=== PATIENT | male | born 1985 | race Caucasian/White ===

== ENCOUNTER → 2016-12-11 | Outpatient (CLI) | payer OTHER ==
[~2016-12-11] VITALS: Ht 175.3 cm; Wt 72.6 kg
[~2016-12-11] MED LIST: LIDOCAINE 2% INJ 100 MG/5 ML SDV (FOR ANES.) As Ordered ONE; NEXI20CA PO; NS 1,000 ML IV ONE; PROPOFOL 200 MG/20 ML VIAL As Ordered ONE
--- NOTE | 2016-12-11 13:33 | ROOR ---
Patient Name: Artur Russo Procedure Date: 12/11/2016 12:57 PM Date of : 1985 Age: 31 Room: [facility] Gender: Male Note Status: Finalized Procedure: Upper GI endoscopy Indications: Familial Adenomatous Polyposis Providers: Haim LOUIS MD Referring MD: NEETA ASTUDILLO MD Requesting Provider: Medicines: Monitored Anesthesia Care Complications: No immediate complications. Procedure: Pre-Anesthesia Assessment: - The heart rate, respiratory rate, oxygen saturations, blood pressure, adequacy of pulmonary ventilation, and response to care were monitored throughout the procedure. The Endoscope was introduced through the mouth, and advanced to the third part of duodenum. The upper GI endoscopy was accomplished without difficulty. The patient tolerated the procedure well. Findings: No endoscopic abnormality was evident in the esophagus to explain the patient's complaint of dysphagia. This was biopsied with a cold forceps for evaluation of eosinophilic esophagitis. Multiple small semi-sessile fundic gland polyps with no stigmata of recent bleeding were found in the gastric fundus and in the gastric body. This was biopsied with a cold forceps for r/o adenoma. multiple random biopsies. The exam of the stomach was otherwise normal. A few diminutive sessile polyps were found in the first portion of the duodenum. This was biopsied with a cold forceps for histology. The exam of the duodenum was otherwise normal. Impression: - No endoscopic esophageal abnormality to explain patient's dysphagia. Biopsied for eosinophilic esophagitis. - Multiple, too numerous to count, small fundic gland appearing polyps. Biopsied to r/o adenoma. - Stomach otherwise normal. - A few tiny duodenal polyps. Biopsied to r/o adenoma. - Duodenum otherwise normal. Recommendation: - Await pathology results. - Telephone endoscopist for pathology results in 2 weeks. - Repeat upper endoscopy in 1 year for surveillance. Haim Louis MD Haim LOUIS MD 12/11/2016 1:33:05 PM This report has been signed electronically. Number of Addenda: 0 Note Initiated On: 12/11/2016 12:57 PM Estimated Blood Loss: Estimated blood loss: none.
--- NOTE | 2016-12-11 13:48 | ROOR ---
Patient Name: Artur Russo Procedure Date: 12/11/2016 12:58 PM Date of : 1985 Age: 31 Room: [facility] Gender: Male Note Status: Finalized Procedure: Flexible Sigmoidoscopy Indications: Surveillance: High risk for colon cancer and History of adenomatous polyps, last colonoscopy (<3 yr), High risk colon cancer surveillance: Personal history of familial adenomatous polyposis Providers: Haim LOUIS MD Referring MD: NEETA ASTUDILLO MD Requesting Provider: Medicines: Monitored Anesthesia Care Complications: No immediate complications. Procedure: Pre-Anesthesia Assessment: - The heart rate, respiratory rate, oxygen saturations, blood pressure, adequacy of pulmonary ventilation, and response to care were monitored throughout the procedure. The Colonoscope was introduced through the anus and advanced to the ileo-sigmoid anastomosis. The flexible sigmoidoscopy was accomplished without difficulty. The patient tolerated the procedure well. The quality of the bowel preparation was good. Findings: The perianal and digital rectal examinations were normal. There was evidence of a prior end-to-end ileo-rectal anastomosis at 18 cm proximal to the anus. This was patent and was characterized by healthy appearing mucosa. The anastomosis was traversed. The rectum, ileum, anastomosis and area at 40 cm proximal to the anus appeared normal. Impression: - Patent end-to-end ileo-rectal anastomosis, characterized by healthy appearing mucosa. - The rectum, terminal ileum, colonic anastomosis and area at 40 cm proximal to the anus are normal. - No specimens collected. Recommendation: - Repeat flexible sigmoidoscopy in 1 year for surveillance. Haim Louis MD Haim LOUIS MD 12/11/2016 1:47:31 PM This report has been signed electronically. Number of Addenda: 0 Note Initiated On: 12/11/2016 12:58 PM Estimated Blood Loss: Estimated blood loss: none.
[2016-12-11 14:05] VITALS: BP 128/72
== END | disposition home or self-care (01) ==
LOC: M OPP 11:49
PROVIDERS: ATTEND Internal Medicine Gastroenterology
DX: Z12.11 Encounter for screening for malignant neoplasm of colon (principal); Z98.0 Intestinal bypass and anastomosis status; Z86.010 Personal history of colon polyps; D12.6 Benign neoplasm of colon, unspecified; R13.10 Dysphagia, unspecified; K31.7 Polyp of stomach and duodenum; K21.9 Gastro-esophageal reflux disease without esophagitis; R12 Heartburn; Z87.828 Personal history of other (healed) physical injury and trauma; Z79.899 Other long term (current) drug therapy; Z80.8 Family history of malignant neoplasm of other organs or systems; Z80.3 Family history of malignant neoplasm of breast

== ENCOUNTER → 2017-01-29 | Outpatient (CLI) | payer OTHER ==
[~2017-01-29] VITALS: Ht 175.3 cm; Wt 72.1 kg
[~2017-01-29] MED LIST changes: -LIDOCAINE 2% INJ 100 MG/5 ML SDV (FOR ANES.) As Ordered ONE; -PROPOFOL 200 MG/20 ML VIAL As Ordered ONE
--- NOTE | 2017-01-29 14:12 | ROOR ---
Patient Name: Artur Russo Procedure Date: 01/29/2017 1:43 PM Date of : 1985 Age: 31 [facility] Note Status: Finalized Procedure: Upper GI endoscopy Indications: Familial Adenomatous Polyposis, s/p colectomy, history of duodenal adenomas, possible history of periampullary adenoma. history of eosinophilic esophagitis, history of gastric fundic gland polyps. Providers: Haim LOUIS MD Referring MD: NEETA ASTUDILLO MD Requesting Provider: Medicines: Monitored Anesthesia Care Complications: No immediate complications. Procedure: Pre-Anesthesia Assessment: - The heart rate, respiratory rate, oxygen saturations, blood pressure, adequacy of pulmonary ventilation, and response to care were monitored throughout the procedure. The Endoscope was introduced through the mouth, and advanced to the third part of duodenum. The upper GI endoscopy was accomplished without difficulty. The patient tolerated the procedure well. - First the standard EGD scope was used, this was replaced with side view duodenoscope for better eval of periampullary area. Findings: The examined esophagus was normal. Multiple sessile fundic gland polyps were found in the gastric fundus and in the gastric body. The exam of the stomach was otherwise normal. Two diminutive sessile polyps were found in the second portion of the duodenum. The polyp was removed with a jumbo cold forceps. Resection and retrieval were complete. The exam of the duodenum was otherwise normal. Impression: - Normal esophagus. (biopsies from last month were negative for eosinophilic esophagitis) - Multiple fundic gland polyps.(biopsies from last month were negative for adenoma) - Two tiny duodenal polyps. Resected and retrieved. - Papilla and peripapillary area well seen on straight as well as side view scope. Appearance is normal- I do not see a definite abnormality. The papilla and peripapillary mucosa was. Recommendation: - Await pathology results. - Telephone endoscopist for pathology results in 2 weeks. - Unless directed otherwise by biopsies done today, will plan on repeat upper endoscopy (standard and side view scope) and flexible sigmoidoscopy in 1 year for surveillance. Haim Louis MD Haim LOUIS MD 01/29/2017 2:11:56 PM This report has been signed electronically. Number of Addenda: 0 Note Initiated On: 01/29/2017 1:43 PM Estimated Blood Loss: Estimated blood loss: none.
[2017-01-29 14:29] VITALS: BP 115/74
== END | disposition home or self-care (01) ==
LOC: M OPP 12:36
PROVIDERS: ATTEND Internal Medicine Gastroenterology
DX: D12.6 Benign neoplasm of colon, unspecified (principal); K31.7 Polyp of stomach and duodenum; R12 Heartburn; K21.9 Gastro-esophageal reflux disease without esophagitis; Z87.828 Personal history of other (healed) physical injury and trauma; Z79.899 Other long term (current) drug therapy; Z80.3 Family history of malignant neoplasm of breast; Z80.8 Family history of malignant neoplasm of other organs or systems

== ENCOUNTER 2017-06-11 19:17 | Day surgery (SDC) | payer OTHER ==
[~2017-06-11] VITALS: Ht 175.3 cm; Wt 79.5 kg
[~2017-06-11 19:17] MED LIST changes: -NS 1,000 ML IV ONE
[2017-06-11] MEDS ORDERED: GLUCAGON FOR INJ 1 MG VIAL (J1610) IV STA ×2 (19:54→20:36)
[2017-06-11] MEDS ORDERED: NITROGLYCERIN 0.4 MG SUBL TABLET SL STA ×2 (19:58→20:36)
[2017-06-11] MEDS ORDERED: NS 1,000 ML IV ONE (20:00)
[2017-06-11 20:49] VITALS: BP 137/84
[2017-06-11] MEDS ORDERED: MIDAZOLAM INJ 2 MG/2 ML VIAL (J2250) As Ordered ONE (22:11)
[2017-06-11] MEDS ORDERED: fentaNYL 100 MCG/2 ML INJECTION (J3010) As Ordered ONE (22:12)
[2017-06-11] MEDS ORDERED: PROPOFOL 200 MG/20 ML VIAL As Ordered ONE (22:12)
[2017-06-11] MEDS ORDERED: LIDOCAINE 2% INJ 100 MG/5 ML SDV (FOR ANES.) As Ordered ONE ×2 (22:12→22:13)
[2017-06-11] MEDS ORDERED: ROCURONIUM BROMIDE 50 MG/5 ML VIAL/SYRINGE As Ordered ONE (23:03)
[2017-06-11] MEDS ORDERED: SUCCINYLCHOLINE 100 MG/5 ML SYRINGE (J0330) As Ordered ONE ×2 (23:03→23:18)
[2017-06-12] MEDS ORDERED: SEVOFLURANE INHAL SOLN 250 ML BTL As Ordered ONE (00:52)
--- NOTE | 2017-06-12 02:05 | ROOR ---
Patient Name: Artur Russo Procedure Date: 06/11/2017 10:08 PM Date of : 1985 Age: 31 Gender: Male Note Status: Finalized Procedure: Upper GI endoscopy Indications: Removal of foreign body in the esophagus Providers: Riley Escobar MD Referring MD: 3. Emergency Dept 3. Emergency Dept Requesting Provider: Medicines: Monitored Anesthesia Care Complications: No immediate complications. Procedure: Pre-Anesthesia Assessment: - Prior to the procedure, a History and Physical was performed, and patient medications and allergies were reviewed. The patient is competent. The risks and benefits of the procedure and the sedation options and risks were discussed with the patient. All questions were answered and informed consent was obtained. Patient identification and proposed procedure were verified by the physician, the nurse and the anesthesiologist in the procedure room. Mental Status Examination: alert and oriented. Airway Examination: normal oropharyngeal airway and neck mobility. Respiratory Examination: clear to auscultation. CV Examination: normal. Prophylactic Antibiotics: The patient does not require prophylactic antibiotics. Prior Anticoagulants: The patient has taken no previous anticoagulant or antiplatelet agents. ASA Grade Assessment: II - A patient with mild systemic disease. After reviewing the risks and benefits, the patient was deemed in satisfactory condition to undergo the procedure. The anesthesia plan was to use monitored anesthesia care (MAC). Immediately prior to administration of medications, the patient was re-assessed for adequacy to receive sedatives. The heart rate, respiratory rate, oxygen saturations, blood pressure, adequacy of pulmonary ventilation, and response to care were monitored throughout the procedure. The physical status of the patient was re-assessed after the procedure. The Endoscope was introduced through the mouth, and advanced to the second part of duodenum. The upper GI endoscopy was accomplished without difficulty. The patient tolerated the procedure well. Findings: Food was found in the lower third of the esophagus. Removal of food was accomplished. LA Grade B (one or more mucosal breaks greater than 5 mm, not extending between the tops of two mucosal folds) esophagitis with no bleeding was found in the lower third of the esophagus. A medium amount of food (residue) was found in the gastric fundus. Multiple 3 to 6 mm sessile polyps with no stigmata of recent bleeding were found in the cardia, in the gastric fundus and in the gastric body. No gross lesions were noted in the duodenal bulb and in the second portion of the duodenum. Impression: - Food in the lower third of the esophagus. Removal was successful. - LA Grade B reflux esophagitis. - A medium amount of food (residue) in the stomach. - Multiple gastric polyps. - No gross lesions in the duodenal bulb and in the second portion of the duodenum. Recommendation: - Patient has a contact number available for emergencies. The signs and symptoms of potential delayed complications were discussed with the patient. Return to normal activities tomorrow. Written discharge instructions were provided to the patient. - Full liquid diet for 2 days, then advance as tolerated to chopped diet. - Use Protonix (pantoprazole) 40 mg PO twice daily - to be taken in morning (1/2 hour before breakfast) and at bedtime ( atleast 3 hours after last meal) for 3 months. - Follow an antireflux regimen. - Repeat upper endoscopy in 3 - 6 months to evaluate the response to therapy. - Return to GI clinic in 3 months. - Return to primary care physician. Riley Escobar MD Riley Escobar MD 06/12/2017 2:04:59 AM This report has been signed electronically. Number of Addenda: 0 Note Initiated On: 06/11/2017 10:08 PM Estimated Blood Loss: Estimated blood loss was minimal.
[2017-06-12] MEDS ORDERED: LR 1,000 ML IV SCH (02:15)
[2017-06-12] MEDS ORDERED: ONDANSETRON 4MG/2ML VIAL (J2405) IV PRN (02:15)
[2017-06-12] MEDS ORDERED: fentaNYL 100 MCG/2 ML INJECTION (J3010) IV PRN (02:15)
[2017-06-12 02:45] VITALS: BP 136/71
[2017-06-12 03:15] VITALS: BP 119/69
[2017-06-12] MEDS ORDERED: PANTOPRAZOLE 40MG TAB (PROTONIX) PO SCH (09:00)
--- NOTE | 2017-06-12 13:34 | CR.PDOC ---
[facility] Consultation Consultation DATE OF CONSULTATION: Jun 11, 2017 at 19:17 REFERRING PROVIDER: ER physician REASON FOR CONSULTATION/CHIEF COMPLAINT: Food Impaction. HISTORY OF PRESENT ILLNESS: 31 year old male with h/o FAP s/p colectomy and possible EOE ( on PPI daily) presented to ER for complaints of food getting stuck in the middle of the chest and unable to swallow even saliva and started vomiting after he had turkey for dinner at around 8 PM tonight. Patient tried soda and water but could not get it down. GI was consulted in ER for urgent endoscopy for removal of food impaction. Pertinent negative GI symptoms: Patient denies shortness of breath, chest pain, diarrhea, abdominal pain, unintentional weight loss. No history of hematemesis, melena or hematochezia. Patient reports regular bowel movements. Review of Systems: GI: as stated above CVS: No chest pain, No palpitations, No leg swelling. RS: No Shortness of breath, No Wheezing, no cough OVEN LABORER: No dizziness, No motor weakness, No sensory problems Hematology: No bruising, No gum bleeding, Musculoskeletal: No joint pain, ambulating well. Skin: No rash : No hematuria, No burning sensation of the urine ENT: No ear discharge/ pain, No dysphagia. Eyes: No photophobia. Home medications: reviewed. Antithrombotic agents - none Medical h/o: As above. Surgical h/o: None on abdomen. Social h/o: Denies alcohol, smoking or IVDA / drugs.. Family h/o of GI cancers - None Prior Endoscopies: --- EGD In january [address] Louis Multiple gastri polyps. --- Flexible sigmoidoscopy no polyps. Prior GI evaluation: Follows with Giulia TSANG in GI Clinic. Exam: Vitals: reviewed General: Alert and oriented x 3, Moderate distress from food impaction, Spitting out saliva. HEENT: NO pallor, no icterus. Normal oropharynx, NO cervical lymph nodes. Chest: symmetric with bilateral clear air entry, CVS: S1, S2 heard, normal, no murmurs . Abdomen: non-distended, no surgical scars, soft, non-tender, no palpable masses , normal bowel sounds heard. Extremities: no pedal edema, pulses palpable. OVEN LABORER: no focal motor or sensory deficits. Moves all extremities Skin: no rash. Labs: reviewed.HCV screening indicated ordered / done OR Not indicated due to age. Imaging: reviewed Impression: - Food impaction in esophagus. Recommendations: - Patient educated about the test results, possible differential diagnoses and All questions answered. - Will schedule for urgent EGD in OR.. - The procedure, indications, risks (bleeding, perforation, infection, hypotension, respiratory depression, allergy, need for endotracheal intubation, surgery, colostomy, cardiac arrest, even ), benefits, limitations (e.g., missing a lesion), and all other alternatives (including no intervention) were explained to the patient who understood and agreed for the procedure. - NPO - IV fluids - Post procedure follow up recommendations in the procedure note. - Upon discharge follow up in PMD clinic. Plan of care discussed with patient and primary team. Patient verbalized understanding and agreed with the plan. Allergies Coded Allergies: No Known Allergies (Unverified , 12/04/16) Home Medications Scheduled Esomeprazole Magnesium Trihydr (Nexium) 20 Mg Cap, 20 MG PO DAILY, (Reported) BALDEMAR IBARRA MD Jun 11, 2017 23:02
== END 2017-06-12 03:35 ==
LOC: M ED 19:17 → M SDC 22:28 → M PED 06-12 02:39 → M SDC 06-12 03:35
PROVIDERS: ATTEND Internal Medicine Gastroenterology
DX: T18.128A Food in esophagus causing other injury, initial encounter (principal); X58.XXXA Exposure to other specified factors, initial encounter; Y92.098 Other place in other non-institutional residence as the place of occurrence of the external cause; K21.0 Gastro-esophageal reflux disease with esophagitis; K31.7 Polyp of stomach and duodenum; Z79.899 Other long term (current) drug therapy
CPT/HCPCS: 43247; 88300; 96374; 96376; 99285; J0330; J1610; J2250; J3010

== ENCOUNTER 2017-08-23 13:43 | Emergency (ER) | payer OTHER ==
[2017-08-23] MEDS: NS 1,000 ML IV (17:00)
[2017-08-23 18:18] LABS: BASO % 0.3 % (0.0-1.0); EOS # 0.3 10^3/uL (0.0-0.50); EOS % 3.6 % (0.0-3.0); HEMATOCRIT 42.6 % (42.0-52.0); HEMOGLOBIN 13.7 g/dl (14.0-18.0); IMMATURE GRANULOCYTE % 0.4 % (0-0); LYMPH # 1.9 10^3/uL (1.5-4.5); LYMPH % 23.2 % (24.0-44.0); MEAN CORPUSCULAR HEMOGLOBIN 27.6 pg (27.0-33.0); MEAN CORPUSCULAR HGB CONC 32.2 g/dl (32.0-36.5); MEAN CORPUSCULAR VOLUME 85.7 fl (80.0-96.0); MONO # 0.6 10^3/uL (0.0-0.8); MONO % 7.6 % (0.0-5.0); NEUTROPHILS # 5.2 10^3/uL (1.8-7.7); NEUTROPHILS % 64.9 % (36.0-66.0); PLATELET COUNT, AUTOMATED 300 10^3/uL (150-450); RED BLOOD COUNT 4.97 10^6/uL (4.30-6.10); RED CELL DISTRIBUTION WIDTH 12.7 % (11.5-14.5)
[2017-08-23 18:30] LABS: ALBUMIN 4.3 GM/DL (3.2-5.2); ALBUMIN/GLOBULIN RATIO 1.34 (1.00-1.93); ALKALINE PHOSPHATASE 65 U/L (45-117); ALT/SGPT 24 U/L (12-78); ANION GAP 4 MEQ/L (8-16); AST/SGOT 14 U/L (7-37); BILIRUBIN,TOTAL 0.6 MG/DL (0.2-1.0); BLOOD UREA NITROGEN 13 MG/DL (7-18); CALCIUM LEVEL 9.3 MG/DL (8.5-10.1); CARBON DIOXIDE LEVEL 32 MEQ/L (21-32); CHLORIDE LEVEL 103 MEQ/L (98-107); CREATININE FOR GFR 1.14 MG/DL (0.70-1.30); GLOMERULAR FILTRATION RATE > 60.0 (>60); GLUCOSE, FASTING 88 MG/DL (70-100); LIPASE 113 U/L (73-393); POTASSIUM SERUM 3.9 MEQ/L (3.5-5.1); SODIUM LEVEL 139 MEQ/L (136-145); TOTAL PROTEIN 7.5 GM/DL (6.4-8.2)
[2017-08-23] MEDS ORDERED: ISOVUE-370 76% 100ML VIAL (Q9967) As Ordered (18:31)
[2017-08-23 19:09] LABS: KETONE, URINE AUTO RFX NEGATIVE (NEGATIVE); LEUKOCYTE ESTERASE UR AUTO RFX NEGATIVE (NEGATIVE); MUCUS, URINE RFX MODERATE (NEGATIVE); NITRITE, URINE AUTO RFX NEGATIVE (NEGATIVE); RBC, URINE AUTO RFX 1 /HPF (0-3); SPECIFIC GRAVITY UR AUTO RFX 1.024 (1.002-1.035); SQUAM EPITHELIAL CELL UR AURFX 0 /HPF (0-6); WBC, URINE AUTO RFX 0 /HPF (0-3)
== END 2017-08-23 20:20 | disposition home or self-care (01) ==
LOC: M ED 13:43
DX: K52.9 Noninfective gastroenteritis and colitis, unspecified (principal); E27.9 Disorder of adrenal gland, unspecified; Z79.899 Other long term (current) drug therapy
CPT/HCPCS: Q9967

== ENCOUNTER → 2018-03-30 | Outpatient (CLI) | payer OTHER ==
[~2018-03-30] MED LIST changes: -NEXI20CA PO; +PROHANCE 279.3MG/ML 15ML VIAL (A9576) As Ordered
== END ==
LOC: M RAD 09:57
DX: E27.9 Disorder of adrenal gland, unspecified (principal)
CPT/HCPCS: A9576

== ENCOUNTER 2018-04-21 06:46 | Day surgery (SDC) | payer OTHER ==
[2018-04-21] MEDS ORDERED: PROPOFOL 200 MG/20 ML VIAL As Ordered ×4 (07:02→07:05)
[2018-04-21] MEDS ORDERED: LIDOCAINE 2% INJ 100 MG/5 ML SDV (FOR ANES.) As Ordered ×2 (07:03→07:05)
[2018-04-21] MEDS ORDERED: fentaNYL 100 MCG/2 ML INJECTION (J3010) As Ordered (07:10)
[2018-04-21] MEDS: NS 1,000 ML IV (07:30)
== END 2018-04-21 08:35 | disposition home or self-care (01) ==
LOC: M OPP 08:35
DX: Z09 Encounter for follow-up examination after completed treatment for conditions other than malignant neoplasm (principal); Z12.6 Encounter for screening for malignant neoplasm of bladder; Z86.010 Personal history of colon polyps; Z98.0 Intestinal bypass and anastomosis status; Z83.71 Family history of colonic polyps; K20.8 Other esophagitis; K31.7 Polyp of stomach and duodenum; E27.9 Disorder of adrenal gland, unspecified; K21.9 Gastro-esophageal reflux disease without esophagitis; R12 Heartburn; Z79.899 Other long term (current) drug therapy; Z80.8 Family history of malignant neoplasm of other organs or systems; Z80.3 Family history of malignant neoplasm of breast
CPT/HCPCS: 45330

== ENCOUNTER 2019-06-23 06:30 | Day surgery (SDC) | payer OTHER ==
[~2019-06-23] VITALS: Ht 175.3 cm; Wt 81.2 kg
[~2019-06-23 06:30] MED LIST changes: +CIPR-249 PO; +NEXI20CA PO; +NS 1,000 ML IV SCH; -PROHANCE 279.3MG/ML 15ML VIAL (A9576) As Ordered
[2019-06-23] MEDS ORDERED: PROPOFOL 200 MG/20 ML VIAL As Ordered ONE ×3 (07:05→08:02)
[2019-06-23] MEDS ORDERED: LIDOCAINE 2% INJ 100 MG/5 ML SDV (FOR ANES.) As Ordered ONE (07:05)
--- NOTE | 2019-06-23 08:04 | ROOR ---
Patient Name: Artur Russo Procedure Date: 06/23/2019 7:32 AM Date of : 1985 Age: 33 Room: [facility] Gender: Male Note Status: Finalized Procedure: Upper GI endoscopy Indications: Surveillance for malignancy due to personal history of Familial Adenomatous Polyposis, Dysphagia, Follow-up of eosinophilic esophagitis, Familial Adenomatous Polyposis Providers: Haim LOUIS MD Referring MD: NEETA ASTUDILLO MD Requesting Provider: Medicines: Monitored Anesthesia Care Complications: No immediate complications. Procedure: Pre-Anesthesia Assessment: - The heart rate, respiratory rate, oxygen saturations, blood pressure, adequacy of pulmonary ventilation, and response to care were monitored throughout the procedure. First the standard upper endoscope was introduced through the mouth, and advanced to the third part of duodenum. Subsequently,to assess the area of the papilla, the side view duodenoscope was introduced through the mouth and advanced to the area of the papilla. The upper GI endoscopy was accomplished without difficulty. The patient tolerated the procedure well. Findings: Mucosal changes including longitudinal furrows and small-caliber esophagus were found in the lower third of the esophagus. Biopsies were taken with a cold forceps for histology. Multiple diminutive sessile polyps were found in the gastric fundus and in the gastric body. Biopsies were taken with a cold forceps for histology. Three diminutive sessile polyps were found in the first portion of the duodenum and in the second portion of the duodenum. The polyp was removed with a jumbo cold forceps. Resection and retrieval were complete. Prominent, but not necessarily abnormal papilla. This was biopsied with a cold forceps for histology. Impression: - Esophageal mucosal changes consistent with eosinophilic esophagitis. Biopsied. - Multiple tiny gastric polyps. Biopsied. - Three tiny duodenal polyps. Resected and retrieved. - Prominent, but not necessarily abnormal papilla. Biopsied Recommendation: - Cont present medications - Restart Flovent 2 puffs swallowed twice a day. - Repeat EGD in 1 year for continued surveillance of FAP. - (the script was sent to your pharmacy on file) Haim Louis MD Haim LOUIS MD 06/23/2019 8:04:33 AM Electronically signed by Haim LOUIS MD Number of Addenda: 0 Note Initiated On: 06/23/2019 7:32 AM Estimated Blood Loss: Estimated blood loss: none.
--- NOTE | 2019-06-23 08:13 | ROOR ---
Patient Name: Artur Russo Procedure Date: 06/23/2019 7:32 AM Date of : 1985 Age: 33 Room: [facility] Gender: Male Note Status: Finalized Procedure: Colonoscopy Indications: High risk colon cancer surveillance: Personal history of familial adenomatous polyposis Providers: Haim LOUIS MD Referring MD: STEPHENIE CASIANO MD Requesting Provider: Medicines: Monitored Anesthesia Care Complications: No immediate complications. Procedure: Pre-Anesthesia Assessment: - The heart rate, respiratory rate, oxygen saturations, blood pressure, adequacy of pulmonary ventilation, and response to care were monitored throughout the procedure. The Sigmoidoscope [id number] # [id number] was introduced through the anus and advanced to the ileo-sigmoid anastomosis. The flexible sigmoidoscopy was accomplished without difficulty. The patient tolerated the procedure well. The quality of the bowel preparation was good. The Colonoscope was introduced through the anus and advanced to the ileocolonic anastomosis. Findings: There was evidence of a prior end-to-end ileo-rectal anastomosis in the distal sigmoid colon (@20 cm from verge). This was patent and was characterized by healthy appearing mucosa. The anastomosis was traversed. The entire examined colon appeared normal. Impression: - Patent end-to-end ileo-rectal anastomosis, characterized by healthy appearing mucosa. - The entire examined rectum/colon to the anastomosis is normal. - No specimens collected. Recommendation: - Repeat flexible sigmoidoscopy in 1 year for surveillance. Haim Louis MD Haim LOUIS MD 06/23/2019 8:13:24 AM Electronically signed by Haim LOUIS MD Number of Addenda: 0 Note Initiated On: 06/23/2019 7:32 AM Estimated Blood Loss: Estimated blood loss: none.
[2019-06-23 08:41] VITALS: BP 118/77
== END 2019-06-23 09:00 | disposition home or self-care (01) ==
LOC: M OPP 06:30
PROVIDERS: ATTEND Internal Medicine Gastroenterology
DX: K22.8 Other specified diseases of esophagus (principal); K31.7 Polyp of stomach and duodenum; R13.10 Dysphagia, unspecified; K20.0 Eosinophilic esophagitis; Z86.010 Personal history of colon polyps; Z98.0 Intestinal bypass and anastomosis status; Z09 Encounter for follow-up examination after completed treatment for conditions other than malignant neoplasm

== ENCOUNTER 2021-03-14 11:52 | Day surgery (SDC) | payer OTHER ==
[~2021-03-14] VITALS: Ht 175.3 cm; Wt 84.7 kg
[~2021-03-14 11:52] MED LIST changes: +LIDOCAINE 2% 100MG/5ML SDV (FOR ANES.) As Ordered ONE; -NS 1,000 ML IV SCH; +propofoL 200 MG/20 ML VIAL As Ordered ONE
[2021-03-14] MEDS ORDERED: propofoL 200 MG/20 ML VIAL As Ordered ONE ×3 (13:56→14:21)
--- NOTE | 2021-03-14 14:13 | ROOR ---
Patient Name: Artur Russo Procedure Date: 03/14/2021 1:40 PM Date of : 1985 Age: 35 Room: [facility] Gender: Male Note Status: Finalized Procedure: Upper GI endoscopy Indications: Follow-up of eosinophilic esophagitis, Familial Adenomatous Polyposis Providers: Haim Louis MD Referring MD: NEETA ASTUDILLO MD Requesting Provider: Medicines: Monitored Anesthesia Care Complications: No immediate complications. Procedure: Pre-Anesthesia Assessment: - The heart rate, respiratory rate, oxygen saturations, blood pressure, adequacy of pulmonary ventilation, and response to care were monitored throughout the procedure. The Endoscope was introduced through the mouth, and advanced to the third part of duodenum. The Duodenoscope was introduced through the and advanced to the. The upper GI endoscopy was accomplished without difficulty. The patient tolerated the procedure well. Findings: A single small mucosal nodule was found at the gastroesophageal junction, 39 cm from the incisors. Biopsies were taken with a cold forceps for histology. The exam of the esophagus was otherwise normal. Several biopsies were obtained in the upper third of the esophagus and in the middle third of the esophagus with cold forceps for evaluation of eosinophilic esophagitis. Multiple diminutive sessile fundic gland polyps were found in the stomach. This was biopsied with a cold forceps for histology. The exam of the stomach was otherwise normal. A few diminutive sessile polyps were found in the second portion of the duodenum. The polyp was removed with a cold biopsy forceps. Resection and retrieval were complete. Prominent, but not necessarily abnormal papilla. This was biopsied with a cold forceps for histology. Impression: - Mucosal inflammatory appearing nodularity found at the GE junction. Biopsied. - The esophagus is otherwise normal in appearance. Several biopsies were obtained in the upper and middle third of the esophagus for follow up Eosinophilic Esophagitis. - Multiple (TNTC) tiny fundic gland polyps. Randomly biopsied. - A few (4-5) tiny duodenal polyps. Resected and retrieved. - Prominent, but not necessarily abnormal papilla. Area was well visualized with EGD scope. Biopsied - The esophagus is otherwise normal in appearance. Several biopsies were obtained in the upper third of the esophagus and in the middle third of the esophagus for follow up Eosinophilic Esophagitis.. Recommendation: - Await pathology results. - Telephone endoscopist for pathology results in 2 weeks. - Repeat upper endoscopy in 1 year for surveillance. Procedure Code(s): --- Professional --- 20565, Esophagogastroduodenoscopy, flexible, transoral; with biopsy, single or multiple Diagnosis Code(s): --- Professional --- D12.6, Benign neoplasm of colon, unspecified K20.0, Eosinophilic esophagitis K31.7, Polyp of stomach and duodenum K22.8, Other specified diseases of esophagus CPT copyright 2019 [employer]. All rights reserved. The codes documented in this report are preliminary and upon syrup mixer helper review may be revised to meet current compliance requirements. Haim Louis MD Haim Louis MD 03/14/2021 2:13:28 PM Electronically signed by Haim Louis MD Number of Addenda: 0 Note Initiated On: 03/14/2021 1:40 PM Estimated Blood Loss: Estimated blood loss: none.
--- NOTE | 2021-03-14 14:38 | ROOR ---
Patient Name: Artur Russo Procedure Date: 03/14/2021 1:39 PM Date of : 1985 Age: 35 Room: [facility] Gender: Male Note Status: Finalized Procedure: Colonoscopy Indications: Personal history of familial adenomatous polyposis Providers: Haim Louis MD Referring MD: NEETA ASTUDILLO MD Requesting Provider: Medicines: Monitored Anesthesia Care Complications: No immediate complications. Procedure: Pre-Anesthesia Assessment: - The heart rate, respiratory rate, oxygen saturations, blood pressure, adequacy of pulmonary ventilation, and response to care were monitored throughout the procedure. The Endoscope was introduced through the anus and advanced to the ileocolonic anastomosis. The colonoscopy was performed without difficulty. The patient tolerated the procedure well. The quality of the bowel preparation was fair. Findings: The perianal and digital rectal examinations were normal. There was evidence of a prior end-to-end colo-rectal anastomosis in the distal sigmoid colon. This was patent and was characterized by healthy appearing mucosa. Four sessile polyps were found in the rectum and recto-sigmoid colon. The polyps were 3 to 5 mm in size. These polyps were removed with a hot snare. Resection and retrieval were complete. The amrit-terminal ileum appeared normal. Impression: - Preparation of the colon was fair. - Patent end-to-end colo-rectal anastomosis at 12 cm from anal verge, characterized by healthy appearing mucosa. - Four 3 to 5 mm polyps in the rectum and at the recto-sigmoid colon, removed with a hot snare. Resected and retrieved. - The examined portion of the ileum up to 45 cm was normal. Recommendation: - Telephone endoscopist for pathology results in 2 weeks. - Repeat colonoscopy in 1 year for surveillance. Procedure Code(s): --- Professional --- 07064, Colonoscopy, flexible; with removal of tumor(s), polyp(s), or other lesion(s) by snare technique Diagnosis Code(s): --- Professional --- Z86.010, Personal history of colonic polyps K63.5, Polyp of colon K62.1, Rectal polyp Z98.0, Intestinal bypass and anastomosis status CPT copyright 2019 [employer]. All rights reserved. The codes documented in this report are preliminary and upon dry color tester review may be revised to meet current compliance requirements. Haim Louis MD Haim Louis MD 03/14/2021 2:37:21 PM Electronically signed by Haim Louis MD Number of Addenda: 0 Note Initiated On: 03/14/2021 1:39 PM Estimated Blood Loss: Estimated blood loss: none.
[2021-03-14 15:05] VITALS: BP 136/83
== END 2021-03-14 15:19 | disposition home or self-care (01) ==
LOC: M OPP 11:52
PROVIDERS: ATTEND Internal Medicine Gastroenterology
DX: Z12.11 Encounter for screening for malignant neoplasm of colon (principal); Z86.010 Personal history of colon polyps; K63.5 Polyp of colon; K62.1 Rectal polyp; Z98.0 Intestinal bypass and anastomosis status; K20.0 Eosinophilic esophagitis; K31.7 Polyp of stomach and duodenum; K22.8 Other specified diseases of esophagus; K21.9 Gastro-esophageal reflux disease without esophagitis; Z79.899 Other long term (current) drug therapy; Z87.891 Personal history of nicotine dependence

== ENCOUNTER 2021-11-08 00:32 | Inpatient (IN) | payer OTHER ==
[2021-11-08] VITALS (14 sets, daily range): BP systolic 144–199; BP diastolic 78–123
[~2021-11-08] VITALS: Ht 177.8 cm; Wt 88.7 kg
[~2021-11-08 00:32] MED LIST changes: -LIDOCAINE 2% 100MG/5ML SDV (FOR ANES.) As Ordered ONE; -propofoL 200 MG/20 ML VIAL As Ordered ONE
[2021-11-08] MEDS ORDERED: HYDROMORPHONE HCL 0.5 MG/ 0.5 ML SYRINGE (J1170 PER 1) IV ONE ×2 (02:50→19:40)
[2021-11-08] MEDS ORDERED: LR 1,000 ML IV SCH (03:15)
[2021-11-08] MEDS ORDERED: ONDANSETRON 4MG/2ML VIAL IV PRN (03:15)
[2021-11-08] MEDS ORDERED: KETOROLAC 30 MG/ML 1ML VIAL IV PRN (03:15)
[2021-11-08] MEDS ORDERED: hydrALAZINE 20MG/ML 1ML VIAL (J0360 PER 20MG) IV ONE (03:25)
[2021-11-08 04:09] LABS: BASO % 0.2 % (0.0-1.0); HEMATOCRIT 49.6 % (42.0-52.0); HEMOGLOBIN 16.6 g/dl (13.5-17.5); LYMPH # 0.5 10^3/uL (1.5-5.0); LYMPH % 3.1 % (24.0-44.0); MEAN CORPUSCULAR HEMOGLOBIN 29.7 pg (27.0-33.0); MEAN CORPUSCULAR HGB CONC 33.5 g/dl (32.0-36.5); MEAN CORPUSCULAR VOLUME 88.9 fl (80.0-96.0); MONO # 1.1 10^3/uL (0.0-0.8); MONO % 6.5 % (2.0-8.0); NEUTROPHILS # 15.2 10^3/uL (1.5-8.5); NEUTROPHILS % 89.7 % (36.0-66.0); PLATELET COUNT, AUTOMATED 299 10^3/uL (150-450); RED BLOOD COUNT 5.58 10^6/uL (4.30-6.10)
[2021-11-08 04:13] LABS: INR 0.95; PROTHROMBIN TIME 13.1 SECONDS (12.7-14.5)
[2021-11-08] MEDS ORDERED: ACETAMINOPHEN 650 MG SUPP PR PRN (04:20)
[2021-11-08 04:37] LABS: ALBUMIN 3.6 GM/DL (3.2-5.2); ALT/SGPT 62 U/L (12-78); BLOOD UREA NITROGEN 12 MG/DL (7-18); CALCIUM LEVEL 8.9 MG/DL (8.5-10.1); CARBON DIOXIDE LEVEL 22 MEQ/L (21-32); CHLORIDE LEVEL 105 MEQ/L (98-107); CREATININE FOR GFR 0.77 MG/DL (0.70-1.30); GLOMERULAR FILTRATION RATE > 60.0 (>60); GLUCOSE, FASTING 121 MG/DL (70-100); POTASSIUM SERUM 4.4 MEQ/L (3.5-5.1); SODIUM LEVEL 138 MEQ/L (136-145)
[2021-11-08] MEDS ORDERED: HYDROMORPHONE HCL 0.5 MG/ 0.5 ML SYRINGE (J1170 PER 1) IV PRN (05:00)
[2021-11-08] MEDS: HEPARIN SOD (PORCINE) 5000UNITS/ML 1ML VIAL/SYRINGE SC SCH ×3 (05:07→21:09)
[2021-11-08] MEDS ORDERED: PANTOPRAZOLE 40MG VIAL IV ONE (06:00)
[2021-11-08] MEDS: LR 1,000 ML IV SCH ×3 (06:47→23:40)
[2021-11-08] MEDS ORDERED: MORPHINE 2 MG/ML 1ML VIAL IV PRN (07:25)
[2021-11-08] MEDS ORDERED: LORazepam 2 MG TAB PO PRN (07:25)
[2021-11-08] MEDS ORDERED: MORPHINE 4 MG/ML 1ML VIAL/SYRINGE IV PRN (07:25)
[2021-11-08] MEDS ORDERED: HOME MED LIST COMPLETE! XX SCH (07:30)
[2021-11-08] MEDS: CEFEPIME HCL 2 GM in D5W MINI-BAG PLUS 50 ML IV SCH ×2 (08:01→19:34)
[2021-11-08] MEDS: FOLIC ACID 1 MG TAB PO SCH (08:02)
[2021-11-08] MEDS: MULTIVITAMINS/MINERALS THERAP 1 TAB PO SCH (08:02)
[2021-11-08] MEDS: THIAMINE 100 MG TAB PO SCH ×2 (08:02→21:09)
[2021-11-08 08:15] LABS: HEMATOCRIT 48.3 % (42.0-52.0); HEMOGLOBIN 15.9 g/dl (13.5-17.5); MEAN CORPUSCULAR HEMOGLOBIN 29.5 pg (27.0-33.0); MEAN CORPUSCULAR HGB CONC 32.9 g/dl (32.0-36.5); MEAN CORPUSCULAR VOLUME 89.6 fl (80.0-96.0); PLATELET COUNT, AUTOMATED 267 10^3/uL (150-450); RED BLOOD COUNT 5.39 10^6/uL (4.30-6.10); WHITE BLOOD COUNT 16.1 10^3/uL (4.0-10.0)
[2021-11-08 08:44] LABS: ALBUMIN 3.3 GM/DL (3.2-5.2); ALT/SGPT 54 U/L (12-78); BILIRUBIN,TOTAL 1.1 MG/DL (0.2-1.0); BLOOD UREA NITROGEN 14 MG/DL (7-18); CALCIUM LEVEL 8.8 MG/DL (8.5-10.1); CARBON DIOXIDE LEVEL 23 MEQ/L (21-32); CHLORIDE LEVEL 107 MEQ/L (98-107); CREATININE FOR GFR 0.95 MG/DL (0.70-1.30); GLOMERULAR FILTRATION RATE > 60.0 (>60); GLUCOSE, FASTING 138 MG/DL (70-100); LIPASE 3585 U/L (73-393); POTASSIUM SERUM 4.7 MEQ/L (3.5-5.1); SODIUM LEVEL 139 MEQ/L (136-145); TOTAL PROTEIN 6.3 GM/DL (6.4-8.2)
[2021-11-08] MEDS ORDERED: THIAMINE 200MG 2ML VIAL IM SCH (09:00)
[2021-11-08] MEDS ORDERED: NALOXONE INJ 0.4MG/1ML VIAL (J2310 PER 1MG) IV PRN (09:55)
[2021-11-08] MEDS: metroNIDAZOLE 500 MG in IV 1 EA IV SCH ×2 (10:14→16:46)
[2021-11-08] MEDS: HYDROMORPHONE HCL 0.5 MG/ 0.5 ML SYRINGE (J1170 PER 1) IV PRN ×4 (10:14→23:40)
[2021-11-08 13:17] LABS: ALBUMIN 3.2 GM/DL (3.2-5.2); ALT/SGPT 55 U/L (12-78); BILIRUBIN,TOTAL 0.9 MG/DL (0.2-1.0); BLOOD UREA NITROGEN 17 MG/DL (7-18); CALCIUM LEVEL 8.6 MG/DL (8.5-10.1); CARBON DIOXIDE LEVEL 27 MEQ/L (21-32); CHLORIDE LEVEL 105 MEQ/L (98-107); CREATININE FOR GFR 1.09 MG/DL (0.70-1.30); GLOMERULAR FILTRATION RATE > 60.0 (>60); GLUCOSE, FASTING 145 MG/DL (70-100); POTASSIUM SERUM 4.7 MEQ/L (3.5-5.1); SODIUM LEVEL 137 MEQ/L (136-145); TOTAL PROTEIN 6.3 GM/DL (6.4-8.2)
[2021-11-08] MEDS ORDERED: METOPROLOL 5 MG/5 ML VIAL IV STA (14:46)
[2021-11-08] MEDS ORDERED: KETOROLAC 30 MG/ML 1ML VIAL IV ONE (15:15)
[2021-11-08] MEDS ORDERED: ISOVUE-370 76% 100ML VIAL As Ordered ONE (20:58)
[2021-11-09] VITALS (16 sets, daily range): BP systolic 136–173; BP diastolic 82–118
[2021-11-09] MEDS: metroNIDAZOLE 500 MG in IV 1 EA IV SCH ×2 (01:11→08:59)
[2021-11-09] MEDS ORDERED: hydrALAZINE 20MG/ML 1ML VIAL (J0360 PER 20MG) IV PRN (02:25)
[2021-11-09] MEDS: LR 1,000 ML IV SCH ×2 (02:42→11:32)
[2021-11-09] MEDS: HYDROMORPHONE HCL 0.5 MG/ 0.5 ML SYRINGE (J1170 PER 1) IV PRN ×3 (04:18→13:32)
[2021-11-09] MEDS: HEPARIN SOD (PORCINE) 5000UNITS/ML 1ML VIAL/SYRINGE SC SCH ×2 (05:07→13:29)
[2021-11-09] MEDS ORDERED: PANTOPRAZOLE 40MG VIAL IV SCH (06:00)
[2021-11-09 06:06] LABS: BASO % 0.3 % (0.0-1.0); HEMATOCRIT 47.4 % (42.0-52.0); HEMOGLOBIN 15.1 g/dl (13.5-17.5); LYMPH # 0.5 10^3/uL (1.5-5.0); LYMPH % 3.1 % (24.0-44.0); MEAN CORPUSCULAR HGB CONC 31.9 g/dl (32.0-36.5); MEAN CORPUSCULAR VOLUME 91.2 fl (80.0-96.0); MONO # 0.9 10^3/uL (0.0-0.8); MONO % 5.3 % (2.0-8.0); NEUTROPHILS # 14.5 10^3/uL (1.5-8.5); NEUTROPHILS % 90.9 % (36.0-66.0); PLATELET COUNT, AUTOMATED 229 10^3/uL (150-450); WHITE BLOOD COUNT 15.9 10^3/uL (4.0-10.0)
[2021-11-09 06:43] LABS: ALT/SGPT 42 U/L (12-78); BILIRUBIN,TOTAL 0.7 MG/DL (0.2-1.0); BLOOD UREA NITROGEN 17 MG/DL (7-18); CALCIUM LEVEL 8.9 MG/DL (8.5-10.1); CARBON DIOXIDE LEVEL 24 MEQ/L (21-32); CHLORIDE LEVEL 104 MEQ/L (98-107); CREATININE FOR GFR 1.06 MG/DL (0.70-1.30); GLOMERULAR FILTRATION RATE > 60.0 (>60); GLUCOSE, FASTING 138 MG/DL (70-100); POTASSIUM SERUM 4.5 MEQ/L (3.5-5.1); SODIUM LEVEL 136 MEQ/L (136-145)
[2021-11-09] MEDS: CEFEPIME HCL 2 GM in D5W MINI-BAG PLUS 50 ML IV SCH (08:52)
[2021-11-09] MEDS: THIAMINE 100 MG TAB PO SCH (08:53)
[2021-11-09] MEDS: MULTIVITAMINS/MINERALS THERAP 1 TAB PO SCH (08:53)
[2021-11-09] MEDS: FOLIC ACID 1 MG TAB PO SCH (08:53)
[2021-11-09] MEDS ORDERED: METOPROLOL 5 MG/5 ML VIAL IV STA (09:22)
[2021-11-09] MEDS ORDERED: VITMTA PO (10:40)
[2021-11-09] MEDS ORDERED: HEPA500023 SC (10:40)
[2021-11-09] MEDS ORDERED: LORA2TA PO (10:40)
[2021-11-09] MEDS ORDERED: FOLI1TAB11 PO (10:40)
[2021-11-09] MEDS ORDERED: DILA1INJ2 IV ×2 (10:40)
[2021-11-09] MEDS ORDERED: CEFE2INJ2 IV (10:40)
[2021-11-09] MEDS ORDERED: THIA100TA PO (10:40)
[2021-11-09] MEDS ORDERED: AMLO1TAB25 PO (10:40)
[2021-11-09] MEDS ORDERED: PANT40IN4 IV (10:40)
[2021-11-09] MEDS ORDERED: METR1INJ2 IV (10:40)
[2021-11-09] MEDS ORDERED: HYDR20VI2 IV (10:40)
[2021-11-09] MEDS ORDERED: LR10IV IV (10:40)
[2021-11-09] MEDS ORDERED: ONDA4INJ4 IV (10:40)
== END 2021-11-09 15:04 | disposition short-term general hospital (02) | DRG 871 ==
LOC: M PCU 02:32
PROVIDERS: ADMIT Internal Medicine; ATTEND Internal Medicine
DX: A41.9 Sepsis, unspecified organism (principal); K85.90 Acute pancreatitis without necrosis or infection, unspecified; I10 Essential (primary) hypertension; K76.0 Fatty (change of) liver, not elsewhere classified; F10.20 Alcohol dependence, uncomplicated; K70.10 Alcoholic hepatitis without ascites; Z79.899 Other long term (current) drug therapy; F17.200 Nicotine dependence, unspecified, uncomplicated; I16.0 Hypertensive urgency; E87.5 Hyperkalemia

== ENCOUNTER 2022-02-23 08:44 | Day surgery (SDC) | payer OTHER ==
[~2022-02-23] VITALS: Ht 175.3 cm; Wt 90.3 kg
[~2022-02-23 08:44] MED LIST changes: +AMLO1TAB25 PO; +CEFE2INJ2 IV; +DILA1INJ2 IV; +FOLI1TAB11 PO; +HEPA500023 SC; +HYDR20VI2 IV; +LORA2TA PO; +LR10IV IV; +METR1INJ2 IV; +NS 1,000 ML IV ONE; +ONDA4INJ4 IV; +PANT40IN4 IV; +THIA100TA PO; +VITMTA PO
[2022-02-23] MEDS ORDERED: LIDOCAINE 2% 100MG/5ML SDV (FOR ANES.) As Ordered ONE (10:58)
[2022-02-23] MEDS ORDERED: fentaNYL 100 MCG/2 ML INJECTION As Ordered ONE (10:58)
[2022-02-23] MEDS ORDERED: propofoL 200 MG/20 ML VIAL As Ordered ONE ×3 (10:58→11:10)
[2022-02-23 11:55] VITALS: BP 160/97
== END 2022-02-23 12:01 | disposition home or self-care (01) ==
LOC: M OPP 08:44
PROVIDERS: ATTEND Internal Medicine Gastroenterology
DX: Z15.09 Genetic susceptibility to other malignant neoplasm (principal); Z86.010 Personal history of colon polyps; Z98.0 Intestinal bypass and anastomosis status; K20.0 Eosinophilic esophagitis; K22.89 Other specified disease of esophagus; I10 Essential (primary) hypertension; F17.290 Nicotine dependence, other tobacco product, uncomplicated; K21.9 Gastro-esophageal reflux disease without esophagitis; E27.9 Disorder of adrenal gland, unspecified; Z79.899 Other long term (current) drug therapy
CPT/HCPCS: 43239; 45378; 88305; J3010

== ENCOUNTER → 2022-03-13 | Outpatient (CLI) | payer OTHER ==
[~2022-03-13] MED LIST changes: -NS 1,000 ML IV ONE; +PROHANCE 279.3MG/ML 15ML VIAL As Ordered ONE; +PROHANCE 279.3MG/ML 5ML VIAL As Ordered ONE
== END ==
LOC: M RAD 14:32
PROVIDERS: ATTEND Internal Medicine Gastroenterology
DX: K85.91 Acute pancreatitis with uninfected necrosis, unspecified (principal); K86.89 Other specified diseases of pancreas
CPT/HCPCS: 74183; A9576

== ENCOUNTER 2022-04-28 01:13 | Inpatient (IN) | payer OTHER ==
[~2022-04-28] VITALS: Ht 175.3 cm; Wt 88.7 kg
[2022-04-28] VITALS (7 sets, daily range): BP systolic 148–184; BP diastolic 92–112
[~2022-04-28 01:13] MED LIST changes: -PROHANCE 279.3MG/ML 15ML VIAL As Ordered ONE; -PROHANCE 279.3MG/ML 5ML VIAL As Ordered ONE
[2022-04-28] MEDS ORDERED: ACET-683 PO (01:21)
[2022-04-28] MEDS ORDERED: ONDANSETRON 4MG 2ML VIAL IV ONE (01:55)
[2022-04-28 02:04] LABS: BASO # 0.1 10^3/uL (0.0-0.2); BASO % 0.5 % (0.0-1.0); EOS % 0.1 % (0.0-3.0); HEMATOCRIT 47.3 % (42.0-52.0); HEMOGLOBIN 15.8 g/dl (13.5-17.5); LYMPH # 1.2 10^3/uL (1.5-5.0); LYMPH % 7.2 % (24.0-44.0); MEAN CORPUSCULAR HEMOGLOBIN 28.7 pg (27.0-33.0); MEAN CORPUSCULAR HGB CONC 33.4 g/dl (32.0-36.5); MEAN CORPUSCULAR VOLUME 85.8 fl (80.0-96.0); NEUTROPHILS # 13.9 10^3/uL (1.5-8.5); NEUTROPHILS % 85.8 % (36.0-66.0); PLATELET COUNT, AUTOMATED 368 10^3/uL (150-450); RED BLOOD COUNT 5.51 10^6/uL (4.30-6.10); WHITE BLOOD COUNT 16.2 10^3/uL (4.0-10.0)
[2022-04-28 02:18] LABS: INR 0.98; PARTIAL THROMBOPLASTIN TIME 23.8 SECONDS (24.8-34.2); PROTHROMBIN TIME 13.2 SECONDS (12.5-14.5)
[2022-04-28 02:49] LABS: ALBUMIN 4.5 GM/DL (3.2-5.2); ALT/SGPT 69 U/L (12-78); BILIRUBIN,DIRECT 0.2 MG/DL (0.0-0.2); BLOOD UREA NITROGEN 15 MG/DL (7-18); CALCIUM LEVEL 9.5 MG/DL (8.5-10.1); CARBON DIOXIDE LEVEL 22 MEQ/L (21-32); CHLORIDE LEVEL 102 MEQ/L (98-107); ETHYL ALCOHOL (ETHANOL) 0.004 % (0.000-0.010); GLOMERULAR FILTRATION RATE > 60.0 (>60); GLUCOSE, FASTING 140 MG/DL (70-100); LIPASE 4555 U/L (73-393); SODIUM LEVEL 137 MEQ/L (136-145); TOTAL PROTEIN 7.7 GM/DL (6.4-8.2)
[2022-04-28] MEDS ORDERED: NS 2,730 ML in IV 1 EA IV ONE (03:55)
[2022-04-28] MEDS ORDERED: ISOVUE-370 76% 100ML VIAL As Ordered ONE (04:07)
[2022-04-28] MEDS: MORPHINE 4 MG/ML 1ML VIAL/SYRINGE IV PRN ×2 (04:08→04:44)
[2022-04-28 04:37] LABS: RSV AMPLIFICATION NEGATIVE (NEGATIVE)
[2022-04-28] MEDS: HYDROMORPHONE HCL 0.5 MG/ 0.5 ML SYRINGE (J1170 PER 1) IV PRN ×4 (06:32→20:04)
[2022-04-28] MEDS ORDERED: AMLO1TAB25 PO (06:43)
[2022-04-28] MEDS ORDERED: ACET-897 PO (06:43)
[2022-04-28] MEDS ORDERED: VITMTA PO (06:43)
[2022-04-28] MEDS ORDERED: HOME MED LIST COMPLETE! XX SCH (06:45)
[2022-04-28] MEDS ORDERED: PANTOPRAZOLE 40MG VIAL IV ONE (09:05)
[2022-04-28] MEDS ORDERED: MORPHINE 4 MG/ML 1ML VIAL/SYRINGE IV PRN (09:20)
[2022-04-28] MEDS ORDERED: ONDANSETRON 4MG 2ML VIAL IV PRN (09:25)
[2022-04-28] MEDS ORDERED: LORazepam 2 MG TAB PO PRN (09:30)
[2022-04-28 10:08] LABS: TRIGLYCERIDES LEVEL 776 MG/DL (<150)
[2022-04-28] MEDS: MULTIVITAMINS/MINERALS THERAP 1 TAB PO SCH (10:36)
[2022-04-28] MEDS: THIAMINE 100 MG TAB PO SCH (10:36)
[2022-04-28] MEDS: FOLIC ACID 1MG TAB PO SCH (10:36)
[2022-04-28] MEDS: LR 1,000 ML IV SCH ×3 (10:39→21:14)
[2022-04-28] MEDS ORDERED: LABETALOL 100MG/20ML VIAL IV PRN (15:25)
[2022-04-28] MEDS ORDERED: HYDROMORPHONE HCL 0.5 MG/ 0.5 ML SYRINGE (J1170 PER 1) IV PRN (15:25)
[2022-04-28] MEDS: PANTOPRAZOLE 40MG VIAL IV SCH (20:01)
[2022-04-29] VITALS: BP 142/97
[2022-04-29] MEDS: HYDROMORPHONE HCL 0.5 MG/ 0.5 ML SYRINGE (J1170 PER 1) IV PRN ×5 (00:21→14:14)
[2022-04-29] MEDS: LR 1,000 ML IV SCH ×5 (02:17→19:48)
[2022-04-29 04:00] VITALS: BP 141/96
[2022-04-29 06:09] LABS: HEMATOCRIT 39.6 % (42.0-52.0); MEAN CORPUSCULAR HEMOGLOBIN 29.2 pg (27.0-33.0); MEAN CORPUSCULAR HGB CONC 31.8 g/dl (32.0-36.5); MEAN CORPUSCULAR VOLUME 91.7 fl (80.0-96.0); PLATELET COUNT, AUTOMATED 174 10^3/uL (150-450); RED BLOOD COUNT 4.32 10^6/uL (4.30-6.10); WHITE BLOOD COUNT 9.6 10^3/uL (4.0-10.0)
[2022-04-29 06:30] LABS: ALBUMIN 3.1 GM/DL (3.2-5.2); ALT/SGPT 40 U/L (12-78); BILIRUBIN,TOTAL 1.4 MG/DL (0.2-1.0); BLOOD UREA NITROGEN 10 MG/DL (7-18); CALCIUM LEVEL 8.4 MG/DL (8.5-10.1); CARBON DIOXIDE LEVEL 27 MEQ/L (21-32); CHLORIDE LEVEL 104 MEQ/L (98-107); CREATININE FOR GFR 1.13 MG/DL (0.70-1.30); GLOMERULAR FILTRATION RATE > 60.0 (>60); GLUCOSE, FASTING 111 MG/DL (70-100); POTASSIUM SERUM 4.1 MEQ/L (3.5-5.1); SODIUM LEVEL 136 MEQ/L (136-145); TOTAL PROTEIN 5.9 GM/DL (6.4-8.2)
[2022-04-29 06:31] LABS: HEMOGLOBIN 12.6 g/dl (13.5-17.5)
[2022-04-29 07:59] VITALS: BP 135/87
[2022-04-29] MEDS: MULTIVITAMINS/MINERALS THERAP 1 TAB PO SCH (09:29)
[2022-04-29] MEDS: FOLIC ACID 1MG TAB PO SCH (09:29)
[2022-04-29] MEDS: THIAMINE 100 MG TAB PO SCH (09:30)
[2022-04-29] MEDS: PANTOPRAZOLE 40MG VIAL IV SCH (09:32)
[2022-04-29 12:02] VITALS: BP 146/87
[2022-04-29 12:06] LABS: CA19-9 TUMOR MARKER,CARBOHYDRA < 1.2 U/ML (<35.0)
[2022-04-29 16:28] VITALS: BP 149/93
[2022-04-29] MEDS ORDERED: PERCOCET 5MG/325MG TAB PO PRN ×2 (16:45→18:45)
[2022-04-29] MEDS ORDERED: HYDROMORPHONE HCL 0.5 MG/ 0.5 ML SYRINGE (J1170 PER 1) IV PRN ×2 (18:10→18:30)
[2022-04-29] MEDS: PANTOPRAZOLE 40MG TAB (PROTONIX) PO SCH (19:48)
[2022-04-29 20:00] VITALS: BP 134/89
[2022-04-29] MEDS: MORPHINE 2 MG/ML 1ML VIAL IV PRN (22:22)
[2022-04-30] MEDS ORDERED: HYDROmorphone 2 MG TAB PO ONE
[2022-04-30] MEDS ORDERED: PERCOCET 5MG/325MG TAB PO ONE (00:25)
[2022-04-30] MEDS ORDERED: HYDROMORPHONE HCL 0.5 MG/ 0.5 ML SYRINGE (J1170 PER 1) IV ONE (00:45)
[2022-04-30] MEDS: LR 1,000 ML IV SCH ×3 (02:36→20:00)
[2022-04-30 04:00] VITALS: BP 154/91
[2022-04-30] MEDS: PERCOCET 5MG/325MG TAB PO PRN ×4 (04:24→21:28)
[2022-04-30 05:27] LABS: HEMATOCRIT 36.9 % (42.0-52.0); HEMOGLOBIN 11.6 g/dl (13.5-17.5); MEAN CORPUSCULAR HEMOGLOBIN 28.4 pg (27.0-33.0); MEAN CORPUSCULAR HGB CONC 31.4 g/dl (32.0-36.5); MEAN CORPUSCULAR VOLUME 90.4 fl (80.0-96.0); PLATELET COUNT, AUTOMATED 149 10^3/uL (150-450); RED BLOOD COUNT 4.08 10^6/uL (4.30-6.10); WHITE BLOOD COUNT 6.7 10^3/uL (4.0-10.0)
[2022-04-30 06:07] LABS: ALBUMIN 2.8 GM/DL (3.2-5.2); ALT/SGPT 36 U/L (12-78); BILIRUBIN,TOTAL 1.1 MG/DL (0.2-1.0); BLOOD UREA NITROGEN 5 MG/DL (7-18); CALCIUM LEVEL 8.3 MG/DL (8.5-10.1); CARBON DIOXIDE LEVEL 28 MEQ/L (21-32); CHLORIDE LEVEL 101 MEQ/L (98-107); CREATININE FOR GFR 0.92 MG/DL (0.70-1.30); GLOMERULAR FILTRATION RATE > 60.0 (>60); GLUCOSE, FASTING 99 MG/DL (70-100); POTASSIUM SERUM 3.6 MEQ/L (3.5-5.1); SODIUM LEVEL 135 MEQ/L (136-145)
[2022-04-30] MEDS: MORPHINE 2 MG/ML 1ML VIAL IV PRN (07:20)
[2022-04-30 07:56] VITALS: BP 137/91
[2022-04-30] MEDS: MULTIVITAMINS/MINERALS THERAP 1 TAB PO SCH (08:35)
[2022-04-30] MEDS: THIAMINE 100 MG TAB PO SCH (08:35)
[2022-04-30] MEDS: FOLIC ACID 1MG TAB PO SCH (08:35)
[2022-04-30] MEDS: PANTOPRAZOLE 40MG TAB (PROTONIX) PO SCH ×2 (08:35→19:59)
[2022-04-30 12:30] VITALS: BP 147/107
[2022-04-30 20:00] VITALS: BP 148/103
[2022-05-01] MEDS: LR 1,000 ML IV SCH (00:30)
[2022-05-01] MEDS: PERCOCET 5MG/325MG TAB PO PRN ×2 (01:54→08:59)
[2022-05-01 06:00] VITALS: BP 143/103
[2022-05-01 06:31] LABS: BASO % 0.4 % (0.0-1.0); EOS # 0.2 10^3/uL (0.0-0.5); EOS % 3.2 % (0.0-3.0); HEMATOCRIT 35.2 % (42.0-52.0); LYMPH # 0.8 10^3/uL (1.5-5.0); LYMPH % 17.3 % (24.0-44.0); MEAN CORPUSCULAR HEMOGLOBIN 28.3 pg (27.0-33.0); MEAN CORPUSCULAR HGB CONC 31.3 g/dl (32.0-36.5); MEAN CORPUSCULAR VOLUME 90.5 fl (80.0-96.0); MONO # 0.4 10^3/uL (0.0-0.8); MONO % 8.6 % (2.0-8.0); NEUTROPHILS # 3.2 10^3/uL (1.5-8.5); NEUTROPHILS % 70.1 % (36.0-66.0); PLATELET COUNT, AUTOMATED 169 10^3/uL (150-450); RED BLOOD COUNT 3.89 10^6/uL (4.30-6.10); WHITE BLOOD COUNT 4.6 10^3/uL (4.0-10.0)
[2022-05-01 06:56] LABS: ALBUMIN 2.9 GM/DL (3.2-5.2); ALT/SGPT 36 U/L (12-78); BILIRUBIN,TOTAL 0.7 MG/DL (0.2-1.0); BLOOD UREA NITROGEN 5 MG/DL (7-18); CALCIUM LEVEL 8.7 MG/DL (8.5-10.1); CARBON DIOXIDE LEVEL 27 MEQ/L (21-32); CHLORIDE LEVEL 103 MEQ/L (98-107); CREATININE FOR GFR 0.86 MG/DL (0.70-1.30); GLOMERULAR FILTRATION RATE > 60.0 (>60); GLUCOSE, FASTING 90 MG/DL (70-100); POTASSIUM SERUM 3.3 MEQ/L (3.5-5.1); SODIUM LEVEL 140 MEQ/L (136-145)
[2022-05-01 07:52] VITALS: BP 143/103
[2022-05-01] MEDS: MULTIVITAMINS/MINERALS THERAP 1 TAB PO SCH (07:52)
[2022-05-01] MEDS: THIAMINE 100 MG TAB PO SCH (07:52)
[2022-05-01] MEDS: FOLIC ACID 1MG TAB PO SCH (07:52)
[2022-05-01] MEDS: PANTOPRAZOLE 40MG TAB (PROTONIX) PO SCH (07:52)
[2022-05-01] MEDS ORDERED: POTASSIUM CHLORIDE 10MEQ SR TABLET PO ONE (08:00)
[2022-05-01] MEDS ORDERED: VITMTA PO (10:58)
[2022-05-01] MEDS ORDERED: FOLI1TAB11 PO (10:58)
[2022-05-01] MEDS ORDERED: THIA100TA PO (10:58)
[2022-05-01] MEDS ORDERED: PERCOCET PO (10:58)
[2022-05-01] MEDS ORDERED: PROT1TAB2 PO (14:11)
== END 2022-05-01 11:41 | disposition home or self-care (01) | DRG 439 ==
LOC: M ED 01:13 → M ED INP 09:18 → ENRESERV 12:31 → M ICU 13:14 → M PCU 17:23 → M MSPAV 04-30 12:01
PROVIDERS: ADMIT Internal Medicine; ATTEND Internal Medicine
DX: K85.20 Alcohol induced acute pancreatitis without necrosis or infection (principal); F10.988 Alcohol use, unspecified with other alcohol-induced disorder; K92.0 Hematemesis; K86.3 Pseudocyst of pancreas; I10 Essential (primary) hypertension; Z90.49 Acquired absence of other specified parts of digestive tract; Z86.16 Personal history of COVID-19; D12.6 Benign neoplasm of colon, unspecified; D35.00 Benign neoplasm of unspecified adrenal gland; F17.290 Nicotine dependence, other tobacco product, uncomplicated; K76.0 Fatty (change of) liver, not elsewhere classified; Z79.899 Other long term (current) drug therapy; Z20.822 Contact with and (suspected) exposure to COVID-19

== ENCOUNTER → 2022-07-29 | Outpatient (CLI) | payer OTHER ==
[~2022-07-29] MED LIST changes: +ACET-683 PO; +ACET-897 PO; -DILA1INJ2 IV; +GASTROGRAFIN SOLUTION 30ML As Ordered ONE; +HYDR0.5S8 IV; +ISOVUE-370 76% 100ML VIAL As Ordered ONE; +PERCOCET PO; +PROT1TAB2 PO
== END ==
LOC: M RAD 14:51
PROVIDERS: ATTEND Internal Medicine Gastroenterology
DX: D3A.8 Other benign neuroendocrine tumors (principal); K76.0 Fatty (change of) liver, not elsewhere classified; K86.89 Other specified diseases of pancreas

== ENCOUNTER 2023-02-16 23:25 | Emergency (ER) | payer OTHER ==
[~2023-02-16] VITALS: Ht 175.3 cm; Wt 95.7 kg
[~2023-02-16 23:25] MED LIST changes: -GASTROGRAFIN SOLUTION 30ML As Ordered ONE; -ISOVUE-370 76% 100ML VIAL As Ordered ONE
[2023-02-16 23:27] VITALS: TEMP 98.1
[2023-02-17] MEDS ORDERED: NS 1,000 ML IV ONE
[2023-02-17] MEDS ORDERED: dexAMETHasone 20MG/5ML VIAL IV ONE
[2023-02-17] MEDS ORDERED: FAMOTIDINE 20MG/2ML VIAL IVP ONE
[2023-02-17 01:00] VITALS: O2SAT 96
[2023-02-17] MEDS ORDERED: CETI10CH PO (01:41)
[2023-02-17] MEDS ORDERED: PRED20TA PO (01:41)
[2023-02-17] MEDS ORDERED: PEPC1TAB5 PO (01:41)
[2023-02-17 01:53] VITALS: BP 148/89
== END 2023-02-17 02:03 | disposition home or self-care (01) ==
LOC: M ED 23:25
DX: T78.40XA Allergy, unspecified, initial encounter (principal); I10 Essential (primary) hypertension; F17.290 Nicotine dependence, other tobacco product, uncomplicated; Z79.899 Other long term (current) drug therapy
CPT/HCPCS: 96361; 96374; 96375; 99284; J1100; S0028

== ENCOUNTER 2023-04-27 06:39 | Day surgery (SDC) | payer OTHER ==
[~2023-04-27] VITALS: Ht 175.3 cm; Wt 93.8 kg
[~2023-04-27 06:39] MED LIST changes: +CETI10CH PO; +NS 1,000 ML IV ONE; +PEPC1TAB5 PO; +PRED20TA PO
[2023-04-27] MEDS ORDERED: LIDOCAINE 2% 100MG/5ML SDV (FOR ANES.) As Ordered ONE (07:03)
[2023-04-27] MEDS ORDERED: fentaNYL 100 MCG/2 ML INJECTION As Ordered ONE (07:03)
[2023-04-27] MEDS ORDERED: propofoL 200 MG/20 ML VIAL As Ordered ONE (07:05)
[2023-04-27 08:07] VITALS: TEMP 97.1
[2023-04-27 08:20] VITALS: BP 115/67; O2SAT 98
[2023-04-28] MEDS ORDERED: PANT40TA29 PO (01:14)
[2023-04-28] MEDS ORDERED: VITMTA PO (01:14)
[2023-04-28] MEDS ORDERED: BUPR150T12 PO (01:14)
[2023-04-28] MEDS ORDERED: OMEG10002 PO (01:14)
[2023-04-28] MEDS ORDERED: SERT50TA29 PO (01:14)
[2023-04-28] MEDS ORDERED: MESA50SU PR (13:12)
== END 2023-04-27 08:35 | disposition home or self-care (01) ==
LOC: M OPP 06:39
PROVIDERS: ATTEND Internal Medicine Gastroenterology
DX: Z86.010 Personal history of colon polyps (principal); D12.8 Benign neoplasm of rectum; K62.89 Other specified diseases of anus and rectum; Z15.09 Genetic susceptibility to other malignant neoplasm; Z98.0 Intestinal bypass and anastomosis status; Z12.89 Encounter for screening for malignant neoplasm of other sites; K31.7 Polyp of stomach and duodenum; K22.89 Other specified disease of esophagus; F17.290 Nicotine dependence, other tobacco product, uncomplicated; Z79.83 Long term (current) use of bisphosphonates; Z79.899 Other long term (current) drug therapy
CPT/HCPCS: 43239; 45338; 88305; J3010

== ENCOUNTER 2023-04-27 12:15 | Emergency (ER) | payer OTHER ==
[~2023-04-27] VITALS: Ht 175.3 cm; Wt 95.4 kg
[2023-04-27 12:15] VITALS: BP 133/84; TEMP 98.3; O2SAT 96
[~2023-04-27 12:15] MED LIST changes: -NS 1,000 ML IV ONE
[2023-04-27 13:09] LABS: BASO % 0.3 % (0.0-1.0); EOS # 0.2 10^3/uL (0.0-0.5); EOS % 1.9 % (0.0-3.0); HEMATOCRIT 41.4 % (42.0-52.0); HEMOGLOBIN 13.1 g/dl (13.5-17.5); LYMPH # 0.9 10^3/uL (1.5-5.0); LYMPH % 10.9 % (24.0-44.0); MEAN CORPUSCULAR HEMOGLOBIN 28.7 pg (27.0-33.0); MEAN CORPUSCULAR HGB CONC 31.6 g/dl (32.0-36.5); MEAN CORPUSCULAR VOLUME 90.6 fl (80.0-96.0); MONO # 0.5 10^3/uL (0.0-0.8); MONO % 5.8 % (2.0-8.0); NEUTROPHILS % 80.8 % (36.0-66.0); PLATELET COUNT, AUTOMATED 292 10^3/uL (150-450); RED BLOOD COUNT 4.57 10^6/uL (4.30-6.10); WHITE BLOOD COUNT 8.6 10^3/uL (4.0-10.0)
[2023-04-27 13:38] LABS: LIPASE 25 U/L (12-53)
[2023-04-27 13:40] LABS: ALKALINE PHOSPHATASE 84 U/L (46-116); ALT/SGPT 59 U/L (7.0-40); AST/SGOT 36 U/L (<34); BILIRUBIN,DIRECT < 0.1 MG/DL (<0.4); BILIRUBIN,TOTAL 0.3 MG/DL (0.3-1.2); BLOOD UREA NITROGEN 15 MG/DL (9-23); CARBON DIOXIDE LEVEL 26 MMOL/L (20-31); CHLORIDE LEVEL 110 MMOL/L (98-107); GLOMERULAR FILTRATION RATE > 60.0 (>60); GLUCOSE, FASTING 99 MG/DL (60-100); POTASSIUM SERUM 4.6 MMOL/L (3.5-5.1); SODIUM LEVEL 143 MMOL/L (136-145)
[2023-04-28] MEDS ORDERED: OMEG10002 PO (01:14)
[2023-04-28] MEDS ORDERED: PANT40TA29 PO (01:14)
[2023-04-28] MEDS ORDERED: SERT50TA29 PO (01:14)
[2023-04-28] MEDS ORDERED: VITMTA PO (01:14)
[2023-04-28] MEDS ORDERED: BUPR150T12 PO (01:14)
[2023-04-28] MEDS ORDERED: MESA50SU PR (13:12)
== END 2023-04-27 15:00 | disposition left against medical advice (07) ==
LOC: M ED 12:15
DX: Z53.21 Procedure and treatment not carried out due to patient leaving prior to being seen by health care provider (principal)

== ENCOUNTER 2023-04-27 22:02 | Observation (INO) | payer OTHER ==
[~2023-04-27] VITALS: Ht 175.3 cm; Wt 90.9 kg
[2023-04-28] MEDS ORDERED: NS 1,000 ML IV SCH (00:10)
[2023-04-28 00:45] LABS: HEMATOCRIT 37.8 % (42.0-52.0); HEMOGLOBIN 12.2 g/dl (13.5-17.5); MEAN CORPUSCULAR HEMOGLOBIN 28.9 pg (27.0-33.0); MEAN CORPUSCULAR HGB CONC 32.3 g/dl (32.0-36.5); MEAN CORPUSCULAR VOLUME 89.6 fl (80.0-96.0); PLATELET COUNT, AUTOMATED 244 10^3/uL (150-450); RED BLOOD COUNT 4.22 10^6/uL (4.30-6.10); WHITE BLOOD COUNT 7.1 10^3/uL (4.0-10.0)
[2023-04-28 01:10] LABS: ETHYL ALCOHOL (ETHANOL) < 0.003 % (0.000-0.010)
[2023-04-28 01:12] LABS: ALBUMIN 3.8 G/DL (3.2-5.2); ALKALINE PHOSPHATASE 93 U/L (46-116); ALT/SGPT 53 U/L (7.0-40); AST/SGOT 49 U/L (<34); BILIRUBIN,DIRECT < 0.1 MG/DL (<0.4); BILIRUBIN,TOTAL 0.2 MG/DL (0.3-1.2); BLOOD UREA NITROGEN 20 MG/DL (9-23); CALCIUM LEVEL 9.2 MG/DL (8.5-10.1); CARBON DIOXIDE LEVEL 23 MMOL/L (20-31); CHLORIDE LEVEL 108 MMOL/L (98-107); CREATININE FOR GFR 0.89 MG/DL (0.70-1.30); GLOMERULAR FILTRATION RATE > 60.0 (>60); GLUCOSE, FASTING 103 MG/DL (60-100); INR 0.98; POTASSIUM SERUM 4.7 MMOL/L (3.5-5.1); PROTHROMBIN TIME 12.7 SECONDS (12.5-14.5); SODIUM LEVEL 139 MMOL/L (136-145); TOTAL PROTEIN 6.7 G/DL (5.7-8.2)
[2023-04-28 01:13] LABS: PARTIAL THROMBOPLASTIN TIME 28.8 SECONDS (24.8-34.2)
[2023-04-28] MEDS ORDERED: PANT40TA29 PO (01:14)
[2023-04-28] MEDS ORDERED: VITMTA PO (01:14)
[2023-04-28] MEDS ORDERED: OMEG10002 PO (01:14)
[2023-04-28] MEDS ORDERED: SERT50TA29 PO (01:14)
[2023-04-28] MEDS ORDERED: BUPR150T12 PO (01:14)
[2023-04-28] MEDS ORDERED: HOME MED LIST COMPLETE! XX SCH (01:15)
[2023-04-28 03:29] VITALS: BP 133/80; TEMP 97.4; O2SAT 98
[2023-04-28] MEDS ORDERED: NICOTINE 21MG/24HR 1 EA TRANSDERMAL TD PRN (03:50)
[2023-04-28 04:13] LABS: HEMATOCRIT 37.6 % (42.0-52.0)
[2023-04-28 06:40] VITALS: BP 117/70; TEMP 97.7; O2SAT 99
[2023-04-28] MEDS ORDERED: GLUCAGON INJ 1MG VIAL SC PRN (07:00)
[2023-04-28] MEDS ORDERED: GLUCOSE 4GM CHEW TABLET PO PRN (07:00)
[2023-04-28] MEDS ORDERED: DEXTROSE 50% 50ML SYRINGE IV PRN (07:00)
[2023-04-28 07:40] LABS: BASO % 0.4 % (0.0-1.0); EOS # 0.1 10^3/uL (0.0-0.5); EOS % 2.6 % (0.0-3.0); HEMATOCRIT 37.6 % (42.0-52.0); HEMOGLOBIN 11.8 g/dl (13.5-17.5); LYMPH # 1.2 10^3/uL (1.5-5.0); LYMPH % 26.8 % (24.0-44.0); MEAN CORPUSCULAR HEMOGLOBIN 28.6 pg (27.0-33.0); MEAN CORPUSCULAR HGB CONC 31.4 g/dl (32.0-36.5); MONO # 0.4 10^3/uL (0.0-0.8); MONO % 8.8 % (2.0-8.0); NEUTROPHILS # 2.8 10^3/uL (1.5-8.5); NEUTROPHILS % 61.2 % (36.0-66.0); PLATELET COUNT, AUTOMATED 214 10^3/uL (150-450); RED BLOOD COUNT 4.13 10^6/uL (4.30-6.10); WHITE BLOOD COUNT 4.6 10^3/uL (4.0-10.0)
[2023-04-28 08:05] LABS: BLOOD UREA NITROGEN 15 MG/DL (9-23); CALCIUM LEVEL 8.6 MG/DL (8.5-10.1); CARBON DIOXIDE LEVEL 25 MMOL/L (20-31); CHLORIDE LEVEL 110 MMOL/L (98-107); CREATININE FOR GFR 1.03 MG/DL (0.70-1.30); GLOMERULAR FILTRATION RATE > 60.0 (>60); GLUCOSE, FASTING 98 MG/DL (60-100); MAGNESIUM LEVEL 2.1 MG/DL (1.8-2.4); POTASSIUM SERUM 4.1 MMOL/L (3.5-5.1); SODIUM LEVEL 140 MMOL/L (136-145)
[2023-04-28 08:09] LABS: ALBUMIN 3.6 G/DL (3.2-5.2); BILIRUBIN,DIRECT 0.1 MG/DL (<0.4); BILIRUBIN,TOTAL 0.3 MG/DL (0.3-1.2); TOTAL PROTEIN 6.1 G/DL (5.7-8.2)
[2023-04-28] MEDS ORDERED: NICOTINE 21MG/24HR 1 EA TRANSDERMAL TD SCH (09:00)
[2023-04-28] MEDS ORDERED: buPROPion **XL** TABLET 150MG (WELLBUTRIN XL) PO SCH (09:00)
[2023-04-28] MEDS ORDERED: PANTOPRAZOLE 40MG VIAL IV SCH (09:00)
[2023-04-28] MEDS ORDERED: MESALAMINE 1,000 MG SUPP PR ONE (09:00)
[2023-04-28] MEDS ORDERED: SERTRALINE HCL 50 MG TAB PO SCH (09:00)
[2023-04-28 12:17] LABS: HEMATOCRIT 37.5 % (42.0-52.0); HEMOGLOBIN 11.9 g/dl (13.5-17.5)
[2023-04-28] MEDS ORDERED: MESA50SU PR (13:12)
== END 2023-04-28 14:25 | disposition home or self-care (01) ==
LOC: M ED 22:02 → M ED INP 04-28 02:35 → M MS5PR 04-28 03:24
PROVIDERS: ADMIT Internal Medicine; ATTEND Internal Medicine
DX: K62.5 Hemorrhage of anus and rectum (principal); K20.0 Eosinophilic esophagitis; F10.11 Alcohol abuse, in remission; K76.0 Fatty (change of) liver, not elsewhere classified; F39 Unspecified mood [affective] disorder; I10 Essential (primary) hypertension; F17.218 Nicotine dependence, cigarettes, with other nicotine-induced disorders; Z79.899 Other long term (current) drug therapy
CPT/HCPCS: 36415; 80048; 80076; 82077; 83735; 85014; 85018; 85025; 85027; 85610; 85730; 86850; 86900; 86901; 87635; 96361; 96374; 99285; C9113

== ENCOUNTER → 2023-09-09 | Outpatient (CLI) | payer OTHER ==
[~2023-09-09] MED LIST changes: +BUPR150T12 PO; +MESA50SU PR; +OMEG10002 PO; +PANT40TA29 PO; +SERT50TA29 PO
== END ==
LOC: M SLEEP 20:00
PROVIDERS: ATTEND Internal Medicine Pulmonary Disease
DX: G47.33 Obstructive sleep apnea (adult) (pediatric) (principal)

== ENCOUNTER → 2024-01-13 | Outpatient (REF) | LOC: M PLAIMG 11:16 | PROVIDERS: ATTEND Nurse Practitioner Family | DX: M54.9 Dorsalgia, unspecified (principal) ==

== ENCOUNTER → 2024-02-10 | Outpatient (CLI) | payer OTHER | LOC: M SLEEP 20:00 | PROVIDERS: ATTEND Internal Medicine Pulmonary Disease | DX: G47.33 Obstructive sleep apnea (adult) (pediatric) (principal) ==

== ENCOUNTER 2024-08-27 00:58 | Emergency (ER) | payer OTHER ==
[~2024-08-27] VITALS: Ht 175.3 cm; Wt 93.3 kg
[~2024-08-27 00:58] MED LIST changes: -LORA2TA PO; +LORA2TAB15 PO
[2024-08-27 02:36] VITALS: TEMP 98.4
[2024-08-27 02:55] VITALS: BP 131/82; O2SAT 99
== END 2024-08-27 03:52 | disposition home or self-care (01) ==
LOC: M ED 00:58
DX: S80.12XA Contusion of left lower leg, initial encounter (principal); W22.8XXA Striking against or struck by other objects, initial encounter; Y92.009 Unspecified place in unspecified non-institutional (private) residence as the place of occurrence of the external cause; Y93.9 Activity, unspecified; Y99.9 Unspecified external cause status; E78.5 Hyperlipidemia, unspecified; F41.1 Generalized anxiety disorder; F32.A Depression, unspecified; F17.290 Nicotine dependence, other tobacco product, uncomplicated; F12.10 Cannabis abuse, uncomplicated; Z79.899 Other long term (current) drug therapy

== ENCOUNTER 2024-09-28 09:07 | Day surgery (SDC) | payer OTHER ==
[~2024-09-28] VITALS: Ht 175.3 cm; Wt 90.7 kg
[~2024-09-28 09:07] MED LIST changes: +AMLO1TAB24 PO; +ATOR1TAB19 PO; +MULTTAB61 PO
[2024-09-28] MEDS ORDERED: ONDANSETRON 4MG 2ML VIAL As Ordered ONE (10:41)
[2024-09-28] MEDS ORDERED: propofoL 500 MG/50 ML VIAL As Ordered ONE (10:41)
[2024-09-28] MEDS ORDERED: propofoL 200 MG/20 ML VIAL As Ordered ONE (11:16)
[2024-09-28] MEDS ORDERED: fentaNYL 100 MCG/2 ML INJECTION As Ordered ONE (11:28)
[2024-09-28 11:55] VITALS: TEMP 98.7
[2024-09-28 12:17] VITALS: BP 138/81; O2SAT 95
== END 2024-09-28 12:23 | disposition home or self-care (01) ==
LOC: M OPP 09:07
PROVIDERS: ATTEND Internal Medicine Gastroenterology
DX: K31.7 Polyp of stomach and duodenum (principal); Z86.0100 Personal history of colon polyps, unspecified; Z15.09 Genetic susceptibility to other malignant neoplasm; K22.82 Esophagogastric junction polyp; I10 Essential (primary) hypertension; E78.5 Hyperlipidemia, unspecified; K21.9 Gastro-esophageal reflux disease without esophagitis; F41.9 Anxiety disorder, unspecified; F32.A Depression, unspecified; F17.290 Nicotine dependence, other tobacco product, uncomplicated; G47.33 Obstructive sleep apnea (adult) (pediatric); Z99.89 Dependence on other enabling machines and devices; Z79.899 Other long term (current) drug therapy
CPT/HCPCS: 43239; 43251; 45330; 88305; J2405; J3010